=== PATIENT | female | born 1980 ===

== ENCOUNTER 2020-03-19 12:42 | Outpatient (REF) | payer OTHER, SELFPAY | END 2020-03-19 12:43 | disposition home or self-care (01) | LOC: HO.HMGCLDS 12:42 | PROVIDERS: PCP Internal Medicine; Visit Provider Internal Medicine | DX: Z20.828 Contact with and (suspected) exposure to other viral communicable diseases (principal) | CPT/HCPCS: C9803; U0003 ==

== ENCOUNTER 2020-05-27 11:32 | Outpatient (REF) | payer OTHER, SELFPAY ==
[2020-05-27 14:10] LABS: Hematocrit 44.9 % (37-47); Hemoglobin 14.2 g/dl (12.0-16.0); Mean Corpuscular HGB Conc 31.6 g/dl (31.0-35.0); Mean Corpuscular Hemoglobin 28.3 pg (27.0-33.0); Mean Corpuscular Volume 89.4 fL (80-98); Mean Platelet Volume 11.5 fL (9.4-12.3); Platelet Count 327 X10*3/uL (160-400); Red Blood Count 5.02 X10*6/uL (4.20-5.50); Red Cell Distribution Width 13.5 % (11.0-16.0); White Blood Count 9.5 X10*3/uL (4.8-10.8)
[2020-05-27 14:48] LABS: Alanine Aminotransferase 18 U/L (0-31); Albumin Level 4.2 g/dL (3.5-5.0); Alkaline Phosphatase 90 U/L (39-117); Anion Gap 14 (12-20); Aspartate Amino Transferase 22 U/L (5-31); Bilirubin Total 0.5 mg/dL (0.0-1.0); Blood Urea Nitrogen 8 mg/dL (9-16); Calcium 9.1 mg/dL (8.4-10.2); Carbon Dioxide 25 mmol/L (22-29); Chloride 106 mmol/L (96-108); Cholesterol 184 mg/dL; Estimated Glomerular Filt Rate > 60; Glucose Fasting 94 mg/dL (60-99); HDL Cholesterol 55 mg/dL; LDL Cholesterol Calculated 107 mg/dl; Potassium 4.3 mmol/l (3.3-5.1); Sodium 141 mmol/L (135-145); Total Protein 6.8 g/dL (6.5-8.0); Triglycerides 114 mg/dL
[2020-05-28 07:33] LABS: HIV AB/AG Nonreactive (Nonreactive); HIV Num 1 0.12 S/CO (0.00-0.99)
[2020-05-28 08:07] LABS: Syphilis Screen Nonreactive (Nonreactive)
[2020-05-28 18:57] LABS: C. trachomatis RNA TMA NOT DETECTED (NOT DETECTED); N. gonorrhoeae RNA TMA NOT DETECTED (NOT DETECTED)
== END 2020-05-27 11:33 | disposition home or self-care (01) ==
LOC: HO.HMGCLDS 11:32
PROVIDERS: PCP Internal Medicine; Visit Provider Internal Medicine
DX: Z00.00 Encounter for general adult medical examination without abnormal findings (principal)
CPT/HCPCS: 36415; 80053; 80061; 85027; 86780; 87389; 87491; 87591

== ENCOUNTER 2021-06-05 13:42 | Outpatient (REF) | payer OTHER, SELFPAY ==
[2021-06-05 16:22] LABS: Hematocrit 46.4 % (37.0-47.0); Hemoglobin 14.8 g/dl (12.0-16.0); Mean Corpuscular HGB Conc 31.9 g/dl (31.0-35.0); Mean Corpuscular Hemoglobin 28.4 pg (27.0-33.0); Mean Corpuscular Volume 89.1 fL (80.0-98.0); Platelet Count 410 X10*3/uL (160-400); Red Blood Count 5.21 X10*6/uL (4.20-5.50); Red Cell Distribution Width 13.9 % (11.0-16.0); White Blood Count 14.8 X10*3/uL (4.8-10.8)
[2021-06-05 16:48] LABS: Alanine Aminotransferase 31 U/L (0-31); Albumin Level 4.7 g/dL (3.5-5.0); Alkaline Phosphatase 107 U/L (39-117); Anion Gap 14 (12-20); Aspartate Amino Transferase 24 U/L (5-31); Bilirubin Total 0.5 mg/dL (0.0-1.0); Blood Urea Nitrogen 11 mg/dL (9-16); Calcium 10.8 mg/dL (8.4-10.2); Carbon Dioxide 25 mmol/L (22-29); Chloride 104 mmol/L (96-108); Cholesterol 195 mg/dL; Estimated Glomerular Filt Rate > 60; Glucose Random 96 mg/dL (60-115); HDL Cholesterol 53 mg/dL; LDL Cholesterol Calculated 113 mg/dl; Potassium 4.8 mmol/L (3.3-5.1); Sodium 138 mmol/L (135-145); Total Protein 7.8 g/dL (6.5-8.0); Triglycerides 147 mg/dL
[2021-06-05 17:03] LABS: Syphilis Screen Nonreactive (Nonreactive)
[2021-06-05 17:06] LABS: TSH reflex Free T4 0.75 uIU/mL (0.32-4.0)
[2021-06-06 03:01] LABS: CT PCR NOT DETECTED (Not Detect.); NG PCR NOT DETECTED (Not Detect.)
[2021-06-08 08:08] LABS: HIV AB/AG Nonreactive (Nonreactive); HIV Num 1 0.06 S/CO (0.00-0.99)
== END 2021-06-05 13:43 | disposition home or self-care (01) ==
LOC: HO.HMGCLDS 13:42
PROVIDERS: Visit Provider Internal Medicine
DX: Z00.00 Encounter for general adult medical examination without abnormal findings (principal); Z11.3 Encounter for screening for infections with a predominantly sexual mode of transmission; Z11.8 Encounter for screening for other infectious and parasitic diseases; Z11.4 Encounter for screening for human immunodeficiency virus [HIV]; Z13.220 Encounter for screening for lipoid disorders; Z13.29 Encounter for screening for other suspected endocrine disorder
CPT/HCPCS: 36415; 80053; 80061; 84443; 85027; 86780; 87389; 87491; 87591

== ENCOUNTER 2021-06-12 15:15 | Outpatient (REF) | payer OTHER, SELFPAY ==
[2021-06-12 16:27] LABS: Baso%MD 0.8 %; Eos%MD 1.8 %; Hematocrit 42.3 % (37.0-47.0); Hemoglobin 13.7 g/dl (12.0-16.0); IG%MD 0.3 %; Lymph%MD 28.9 %; Mean Corpuscular HGB Conc 32.4 g/dl (31.0-35.0); Mean Corpuscular Hemoglobin 28.8 pg (27.0-33.0); Mean Corpuscular Volume 89.1 fL (80.0-98.0); Mean Platelet Volume 11.3 fL (9.4-12.3); Mono%MD 9.5 %; Neut%MD 58.7 %; Platelet Count 387 X10*3/uL (160-400); Red Blood Count 4.75 X10*6/uL (4.20-5.50); Red Cell Distribution Width 13.8 % (11.0-16.0)
[2021-06-12 16:28] LABS: Appearance Urine HAZY; Color Urine YELLOW; Glucose Urine UA NEG (NEG); Leukocyte Esterase Urine 1+ (NEG); Nitrite Urine NEG (NEG); PH 6.5 (5.0-8.0); Specific Gravity - Urine 1.025 (1.005-1.025); Urine Blood NEG (NEG); Urine Ketones NEG (NEG); Urine Protein NEG (NEG-TRACE)
[2021-06-12 16:36] LABS: Bacteria Urine 4+ /LPF; RBC Urine 0 /HPF (0); Squamous Epithelial Cell Urine 4+ /LPF; WBC Urine 0-2 /HPF (0-4)
[2021-06-12 20:30] LABS: Band Neutrophils Percent 0 % (3-5); Eosinophils Absolute Manual 0.5 X10*3/uL (0.0-0.4); Eosinophils Percent Manual 4 % (0-4); Lymphocytes Absolute Manual 3.6 X10*3/uL (1.2-4.9); Lymphocytes Percent Manual 28 % (20-40); Monocytes Absolute Manual 0.9 X10*3/uL (0.1-1.2); Monocytes Percent Manual 7 % (2-11); Neutrophils Absolute Manual 7.9 X10*3/uL (2.0-8.3); Neutrophils Percent Manual 61 % (45-73)
[2021-06-12 20:31] LABS: RBC Morphology NORMAL
[2021-06-12 20:32] LABS: Platelet Estimate NORMAL (NORMAL); Platelet Morphology Comment NORMAL
[2021-06-15 10:07] LABS: Calcium, Ionized 4.9 mg/dL (4.8-5.6)
== END 2021-06-12 15:16 | disposition home or self-care (01) ==
LOC: HO.HMGCLDS 15:15
PROVIDERS: PCP Internal Medicine; Visit Provider Internal Medicine
DX: E83.52 Hypercalcemia (principal)
CPT/HCPCS: 36415; 81001; 82330; 85007; 85027

== ENCOUNTER 2021-12-02 07:33 | Outpatient (REF) | payer OTHER, SELFPAY ==
[2021-12-02 11:28] LABS: MANUAL DIFF FLAG NO
[2021-12-02 11:33] LABS: Basophils Absolute Auto 0.1 X10*3/uL (0.0-0.2); Eosinophils Absolute Auto 0.3 X10*3/uL (0.0-0.4); Eosinophils Percent Auto 2.7 % (0-4); Hematocrit 42.1 % (37.0-47.0); Hemoglobin 13.6 g/dl (12.0-16.0); Imm Gran Abs Auto 0.03 X10*3/uL (0.00-0.03); Imm Gran Pct Auto 0.3 % (0.0-0.4); Lymphocytes Absolute Auto 2.8 X10*3/uL (1.2-4.9); Lymphocytes Percent Auto 30.7 % (20-40); Mean Corpuscular HGB Conc 32.3 g/dl (31.0-35.0); Mean Corpuscular Hemoglobin 28.8 pg (27.0-33.0); Mean Corpuscular Volume 89.2 fL (80.0-98.0); Mean Platelet Volume 11.1 fL (9.4-12.3); Monocytes Absolute Auto 0.9 X10*3/uL (0.1-1.2); Monocytes Percent Auto 9.3 % (2-11); Neutrophils Absolute Auto 5.2 x10*3/uL (2.0-8.3); Platelet Count 354 X10*3/uL (160-400); Red Blood Count 4.72 X10*6/uL (4.20-5.50); Red Cell Distribution Width 14.3 % (11.0-16.0); White Blood Count 9.2 X10*3/uL (4.8-10.8)
[2021-12-02 11:56] LABS: Alanine Aminotransferase 15 U/L (0-31); Albumin Level 4.1 g/dL (3.5-5.0); Alkaline Phosphatase 89 U/L (39-117); Anion Gap 10 (12-20); Aspartate Amino Transferase 19 U/L (5-31); Bilirubin Total 0.3 mg/dL (0.0-1.0); Blood Urea Nitrogen 11 mg/dL (9-16); Calcium 9.3 mg/dL (8.4-10.2); Carbon Dioxide 26 mmol/L (22-29); Chloride 108 mmol/L (96-108); Cholesterol 185 mg/dL; Estimated Glomerular Filt Rate > 60; Glucose Fasting 105 mg/dL (60-99); HDL Cholesterol 54 mg/dL; Iron 34 mcg/dL (30-160); LDL Cholesterol Calculated 118 mg/dl; Percent Iron Saturation 9 % (15-50); Potassium 4.9 mmol/L (3.3-5.1); Sodium 139 mmol/L (135-145); Total Iron Binding Capacity 388 mcg/dL (228-428); Total Protein 6.6 g/dL (6.5-8.0); Triglycerides 68 mg/dL; Unsaturated Iron Binding 354 ug/dL
[2021-12-02 12:20] LABS: TSH reflex Free T4 1.21 uIU/mL (0.32-4.0); Vitamin D 25-OH Total 20.4 ng/mL (>30)
== END 2021-12-02 07:34 | disposition home or self-care (01) ==
LOC: HO.HMGCLDS 07:33
PROVIDERS: Visit Provider Internal Medicine
DX: Z00.00 Encounter for general adult medical examination without abnormal findings (principal)
CPT/HCPCS: 36415; 80053; 80061; 82306; 83540; 84443; 85025

== ENCOUNTER 2022-01-28 08:19 | Outpatient (REF) | payer OTHER, SELFPAY ==
[2022-02-01 19:47] LABS: HPV mRNA E6/E7 rflx Not Detected (Not Detected)
== END 2022-01-28 08:20 | disposition home or self-care (01) ==
LOC: HO.LNP 08:19
PROVIDERS: Visit Provider Obstetrics & Gynecology
DX: Z01.411 Encounter for gynecological examination (general) (routine) with abnormal findings (principal); Z11.51 Encounter for screening for human papillomavirus (HPV); N92.0 Excessive and frequent menstruation with regular cycle
CPT/HCPCS: 84443; 84702; 85027; 87491; 87591; 87624; 88142; 99202

== ENCOUNTER 2022-01-28 08:25 | Outpatient (REF) | payer OTHER, SELFPAY ==
[2022-01-28 08:59] LABS: Hematocrit 44.1 % (37.0-47.0); Hemoglobin 14.4 g/dl (12.0-16.0); Mean Corpuscular HGB Conc 32.7 g/dl (31.0-35.0); Mean Corpuscular Hemoglobin 28.9 pg (27.0-33.0); Mean Corpuscular Volume 88.6 fL (80.0-98.0); Mean Platelet Volume 10.5 fL (9.4-12.3); Platelet Count 371 X10*3/uL (160-400); Red Blood Count 4.98 X10*6/uL (4.20-5.50); Red Cell Distribution Width 13.5 % (11.0-16.0); White Blood Count 11.4 X10*3/uL (4.8-10.8)
[2022-01-28 09:45] LABS: HCG Quantitative < 2 mIU/mL; TSH reflex Free T4 0.55 uIU/mL (0.32-4.0)
[2022-01-28 12:25] LABS: CT PCR NOT DETECTED (Not Detect.); NG PCR NOT DETECTED (Not Detect.)
== END 2022-01-28 08:26 | disposition home or self-care (01) ==
LOC: HO.LAB 08:25
PROVIDERS: PCP Internal Medicine; Visit Provider Obstetrics & Gynecology
DX: Z13.89 Encounter for screening for other disorder (principal)
CPT/HCPCS: 84443; 84702; 85027; 87491; 87591

== ENCOUNTER 2022-03-02 09:22 | Outpatient (REF) | payer OTHER, SELFPAY ==
--- NOTE | ~2022-03-02 | MM_ITS ---
EXAMINATION: MM SCREENING DIGITAL BREAST TOMOSYNTHESIS, BILATERAL CLINICAL INFORMATION: Screening. Asymptomatic. Age 41. No prior breast imaging. No known family history breast cancer. The lifetime risk of breast cancer based on the Tyrer-Cuzick Model is 7%. COMPARISON: None (current study represents initial baseline exam). TECHNIQUE: Digital breast tomosynthesis is performed in both the craniocaudal and mediolateral oblique views along with computer-aided detection (CAD). Synthesized 2D images are generated from the tomosynthesis. FINDINGS: There are scattered areas of fibroglandular density (ACR BI-RADS breast composition Category b). The breasts show no significant mass and no abnormal calcifications. The axilla and skin contours are unremarkable. Right CC view has asymmetric density central outer quadrant 9.5 cm from nipple, likely summation artifact. As this represents initial baseline exam, patient will be recalled for additional imaging to fully characterize baseline appearance. MM/MM tomosynthesis screening BI IMPRESSION: Right: -Asymmetric density posterior outer breast on CC view, likely summation artifact. Left: -No mammographic evidence of malignancy. ASSESSMENT: BI-RADS 0: Incomplete - Need Additional Imaging Evaluation RECOMMENDATION: 1. Additional views of the right breast (rolled CC x2, ML). 2. Targeted ultrasound if warranted after review of the additional views. 3. Radiology department staff will contact the patient for additional imaging. This patient's information was entered into a reminder system with a target due date for their next mammogram.
== END 2022-03-02 09:23 | disposition home or self-care (01) ==
LOC: HO.MAMMO 09:22
PROVIDERS: PCP Internal Medicine; Visit Provider Obstetrics & Gynecology
DX: Z12.31 Encounter for screening mammogram for malignant neoplasm of breast (principal)
CPT/HCPCS: 77063; 77067

== ENCOUNTER 2022-03-05 08:17 | Outpatient (REF) | payer OTHER, SELFPAY ==
--- NOTE | ~2022-03-05 | MM_ITS ---
EXAMINATION: MM DIAGNOSTIC DIGITAL BREAST TOMOSYNTHESIS, RIGHT US DIAGNOSTIC ULTRASOUND BREAST, RIGHT CLINICAL INFORMATION: Recall from baseline exam for asymmetric density central outer right breast on CC view, suspected summation artifact. Age 41. TC score 7%. COMPARISON: Mammography: 03/02/2022 (baseline) TECHNIQUE: Digital breast tomosynthesis is performed. 2D images are generated from the tomosynthesis. The following views are obtained: Rolled CC x2, ML. Ultrasound right breast is targeted to the outer breast 8:00 through 10:00 position. Grayscale imaging and color Doppler are performed without and with harmonics. FINDINGS: There are scattered areas of fibroglandular density (ACR BI-RADS breast composition Category b). Additional views show scattered islands of fibroglandular tissue which appear changing with change in position. No asymmetric density on MLO view. Ultrasound demonstrates no cystic or solid mass or architectural abnormality or focal duct ectasia. Results are discussed with the patient at time of visit. As a precaution given the baseline status, short interval 6-month follow-up right mammography will be requested to exclude remote possibility of an occult developing density. MM/MM tomosynthesis added views R IMPRESSION: -Additional views show no three-dimensional mass or architectural abnormality. -Unremarkable targeted right breast ultrasound ASSESSMENT: BI-RADS 3: Probably Benign RECOMMENDATION: Diagnostic right mammography in 6 months. This patient's information was entered into a reminder system with a target due date for their next mammogram.
== END 2022-03-05 08:18 | disposition home or self-care (01) ==
LOC: HO.MAMMO 08:17
PROVIDERS: Visit Provider Obstetrics & Gynecology
DX: R92.2 Inconclusive mammogram (principal)
CPT/HCPCS: 76642; 77061; 77065

== ENCOUNTER 2022-03-29 10:26 | Outpatient (REF) | payer OTHER, SELFPAY | END 2022-03-29 10:27 | disposition home or self-care (01) | LOC: HO.LNP 10:26 | PROVIDERS: PCP Internal Medicine; Visit Provider Obstetrics & Gynecology | DX: N93.9 Abnormal uterine and vaginal bleeding, unspecified (principal); Z32.02 Encounter for pregnancy test, result negative | CPT/HCPCS: 58100; 81025; 88305 ==

== ENCOUNTER 2022-04-14 11:11 | Outpatient (REF) | payer OTHER, SELFPAY ==
--- NOTE | ~2022-04-14 | US_ITS ---
EXAMINATION: US PELVIS CLINICAL INFORMATION: Abnormal uterine and vaginal bleeding. COMPARISON: None TECHNIQUE: Ultrasound of the pelvis was performed using both transabdominal and transvaginal transducers along with Doppler. Transvaginal imaging was performed due to inadequate visualization transabdominally. FINDINGS: UTERUS: The uterus is anteverted, retroflexed and measures 9.1 x 4.6 x 5.4 cm. The double wall endometrial thickness is 0.6 cm. The uterus is smooth in contour and has normal myometrial echogenicity. No visible fibroid. There are small nabothian cysts in the cervix. The cervix is closed and measures 1.9 cm. ADNEXA: Both ovaries are visualized. There is normal color flow to the adnexa. There is no ovarian torsion. There is no pelvic ascites or fluid collection. Right ovary measures 3.2 x 2.3 x 2.1 cm, volume 8.1 mL. There is an anechoic cyst with septation measuring 2.4 x 1.3 x 3.2 cm. Left ovary measures 4.7 x 3.4 x 3.8 cm, volume 31.8 mL. There is an anechoic cyst measuring 2.3 x 1.9 x 2.2 cm. Adjacent to this cyst, is a solid, hyperechoic area seen in the left ovary without increased vascularity measuring 3.67 x 2.47 x 2.84 cm. Question a dermoid cyst. There is small daughter cyst adjacent to the larger ovarian cyst. US/US pelvic and transvaginal IMPRESSION: 1. Unremarkable uterus. 2. Small nabothian cysts in the cervix. 3. Bilateral ovarian cysts. 4. Solid, hyperechoic area in the left ovary without increased vascularity. Differential diagnosis includes a dermoid cyst. Recommend follow up after 2 or 3 cycles. 5. There is no free fluid in the cul-de-sac.
== END 2022-04-14 11:12 | disposition home or self-care (01) ==
LOC: HO.US 11:11
PROVIDERS: Visit Provider Obstetrics & Gynecology
DX: N93.9 Abnormal uterine and vaginal bleeding, unspecified (principal)
CPT/HCPCS: 76830; 76856

== ENCOUNTER → 2022-06-08 14:12 | Outpatient (BNVA) | payer OTHER, SELFPAY | PROVIDERS: PCP Internal Medicine; Visit Provider Obstetrics & Gynecology | DX: N83.291 Other ovarian cyst, right side (principal); N83.292 Other ovarian cyst, left side; N93.9 Abnormal uterine and vaginal bleeding, unspecified | CPT/HCPCS: 99212 ==

== ENCOUNTER 2022-07-02 14:15 | Outpatient (REF) | payer OTHER, SELFPAY ==
--- NOTE | ~2022-07-02 | US_ITS ---
EXAMINATION: US PELVIS CLINICAL INFORMATION: Follow up ovarian cyst. LMP 06/27/2022. COMPARISON: 04/14/2022. TECHNIQUE: Ultrasound of the pelvis is performed using both transabdominal and transvaginal transducers along with Doppler. Transvaginal imaging is performed due to inadequate visualization transabdominally. FINDINGS: Uterus: The uterus is anteverted and measures 7.7 x 3.6 x 4.2 cm. The double wall endometrial thickness is 4 mm. The uterus is smooth in contour and has normal myometrial echogenicity. No visible fibroid. Adnexa: The right ovary measures 2.4 x 1.7 x 2.2 cm, volume of 4.5 mL with redemonstration of small hyperechoic foci of uncertain significance, not significantly changed. There is preserved color flow to the right ovary at the moment of this examination. The left ovary is enlarged secondary to the presence of a mass. The left ovary measures 4.4 x 2.8 x 4 cm (25.5 mL) with overall preserved color flow, though suboptimally assessed due to the presence of the lesion. There is redemonstration of a diffusely hyperechoic mass in the left ovary with posterior sound attenuation measuring 3.4 x 2.7 x 3.5 cm, previously 3.7 x 2.5 x 2.8 cm on the ultrasound from 04/14/2022. There are some hyperechoic foci projecting over the cervix, likely representing calcifications. No free fluid. US/US pelvic and transvaginal IMPRESSION: Increased size of a hyperechoic mass in the left ovary which favors to represent a dermoid. Given size and interval growth, surgical consultation is recommended to establish management.
== END 2022-07-02 14:16 | disposition home or self-care (01) ==
LOC: HO.HMGCX 14:15
PROVIDERS: PCP Internal Medicine; Visit Provider Obstetrics & Gynecology
DX: N83.299 Other ovarian cyst, unspecified side (principal)
CPT/HCPCS: 76830; 76856

== ENCOUNTER 2022-07-13 14:13 | Outpatient (REF) | payer OTHER, SELFPAY ==
[2022-07-15 09:03] LABS: CA-125 5 U/mL (<35)
== END 2022-07-13 14:14 | disposition home or self-care (01) ==
LOC: HO.LAB 14:13
PROVIDERS: PCP Internal Medicine; Visit Provider Obstetrics & Gynecology
DX: N83.292 Other ovarian cyst, left side (principal)
CPT/HCPCS: 36415; 86304; 99212

== ENCOUNTER 2022-09-16 14:31 | Outpatient (REF) | payer OTHER, SELFPAY ==
--- NOTE | ~2022-09-16 | MM_ITS ---
EXAMINATION: MM DIAGNOSTIC DIGITAL BREAST TOMOSYNTHESIS, RIGHT CLINICAL INFORMATION: Short interval six-month follow-up for asymmetric density central outer right breast on CC view initially noted at baseline mammography. No known family history breast cancer. The lifetime risk of breast cancer based on the Tyrer-Cuzick Model is 7%. COMPARISON: Mammography: 03/05/2022, 03/02/2022 (baseline, BI-RADS 0), right breast ultrasound 03/05/2022. TECHNIQUE: Digital breast tomosynthesis is performed in both the craniocaudal and mediolateral oblique views along with computer-aided detection (CAD). Synthesized 2D images are generated from the tomosynthesis. Additional spot right CC view is obtained. FINDINGS: There are scattered areas of fibroglandular density (ACR BI-RADS breast composition Category b). Parenchymal pattern is similar to baseline exam. The parenchymal asymmetry posterior central outer breast on CC view appears to largely resolve on the spot view. There is no focal asymmetric density on the MLO projection. No abnormal calcifications. Skin contours are smooth. Right breast will be reassessed again at time of annual mammography, due in 6 months. Results are provided to the patient at time of visit by the technologist. MM/MM tomosynthesis diagnostic RT IMPRESSION: No significant changes from baseline exam. No developing density or interval architectural abnormality. ASSESSMENT: BI-RADS 3: Probably Benign RECOMMENDATION: Diagnostic mammography at time of annual bilateral mammography, due in 6 months. This patient's information was entered into a reminder system with a target due date for their next mammogram.
== END 2022-09-16 14:32 | disposition home or self-care (01) ==
LOC: HO.MAMMO 14:31
PROVIDERS: PCP Internal Medicine; Visit Provider Internal Medicine
DX: R92.2 Inconclusive mammogram (principal)
CPT/HCPCS: 77061; 77065

== ENCOUNTER 2022-12-06 14:23 | Outpatient (REF) | payer OTHER, SELFPAY ==
[2022-12-06 14:34] LABS: Hematocrit 40.7 % (37.0-47.0); Hemoglobin 13.4 g/dl (12.0-16.0); Mean Corpuscular HGB Conc 32.9 g/dl (31.0-35.0); Mean Corpuscular Hemoglobin 29.6 pg (27.0-33.0); Mean Platelet Volume 10.8 fL (9.4-12.3); Platelet Count 335 X10*3/uL (160-400); Red Blood Count 4.52 X10*6/uL (4.20-5.50); Red Cell Distribution Width 13.9 % (11.0-16.0); White Blood Count 10.7 X10*3/uL (4.8-10.8)
[2022-12-06 17:41] LABS: TSH reflex Free T4 1.59 uIU/mL (0.32-4.0)
[2022-12-06 18:19] LABS: CT PCR NOT DETECTED (Not Detect.); NG PCR NOT DETECTED (Not Detect.)
== END 2022-12-06 14:24 | disposition home or self-care (01) ==
LOC: HO.LAB 14:23
PROVIDERS: PCP Internal Medicine; Visit Provider Obstetrics & Gynecology
DX: N83.299 Other ovarian cyst, unspecified side (principal); N93.9 Abnormal uterine and vaginal bleeding, unspecified; Z20.2 Contact with and (suspected) exposure to infections with a predominantly sexual mode of transmission
CPT/HCPCS: 0353U; 36415; 81025; 84443; 85027; 99212

== ENCOUNTER 2022-12-06 14:34 | Outpatient (AMB) | payer OTHER, SELFPAY ==
[2022-12-06 14:41] VITALS: BP 110/70; BMI 30.2
--- NOTE | 2022-12-06 14:41 | MHC.OFFVIS ---
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: No Information Interpreted: non-clinical & clinical Straightening Machine Feeder: Straightening Machine Feeder Present (Aziza ARITA) Accompanied by: Self / Same As Patient Allergies cephalexin Allergy (Severe, Verified 12/06/22 14:42) nausea vomiting sulfamethoxazole [From Bactrim] Allergy (Verified 12/06/22 14:42) Diarrhea trimethoprim [From Bactrim] Allergy (Verified 12/06/22 14:42) Diarrhea trazodone Adverse Reaction (Unknown, Verified 12/06/22 14:42) palpitations tramadol Adverse Reaction (Verified 12/06/22 14:42) Itching skin HPI HPI Comments History of Present Illness Details Presenting complaining of heavy vaginal bleeding over the last few days. Last co testing was in 02/04 was negative. Last ultrasound was in 07/08, the patient underwent laparoscopic oophorectomy [facility] with benign pathology according to her, the records is not available [facility] Medical History Annual physical exam ASCUS with positive high risk HPV cervical Hidradenitis suppurativa Hypercalcemia Lower back pain Surgical History S/P cholecystectomy Family History Mother Rheumatoid arthritis Social History Household Members: Children Housing: House Alcohol intake: current Alcohol intake frequency: holidays/special occasions only Patient Tobacco Use Status: Current everyday Tobacco user Cigarettes Per Day: 5 Years Smoked: 10 e-Cigarette/Vaping Use: Never Used Current occupational status: employed Cognitive needs: No Hearing needs: No Vision needs: Yes Female Reproductive History Menstrual Age of Menarche: 13 Review of Systems Const All systems reviewed & are unremarkable except as noted in HPI and below Physical Exam Vital Signs: Last Vital Signs BP 110/70 12/06/22 14:41 BMI result Body Mass Index 30.2 General: Yes no CVA tenderness External Female Exam: normal external appearance and normal appearance of the urethra Speculum Exam - Vagina: normal appearance of the vagina, normal palpation, no lesions and no masses Speculum Exam - Cervix: normal appearance of the cervix, normal palpation, no lesions, no masses and nontender Bimanual exam- vagina & uterus: normal bimanual exam, normal palpation, uterine size normal, normal palpation, uterine shape normal, No Cervical tenderness present, non-tender and other (No active vaginal bleeding) Bimanual Exam- Adnexa, other: normal adnexae Back/Spine/Pelvis Back: no CVA tenderness Assessment & Plan Assessment & Plan (1) Abnormal uterine bleeding (AUB): Code(s): N93.9 - Abnormal uterine and vaginal bleeding, unspecified Plan: CBC done today within normal, UPT done in the office was negative. GC and chlamydia taken. TSH ordered. Discussed with the patient the different causes of abnormal bleeding including thyroid disorders, uterine and ovarian pathology, endometrial hyperplasia, carcinoma and other potential causes. Discussed with the patient the work up including CBC (to r/o anemia), TSH, endometrial biopsy to r/o endometrial pathology. All questions answered and the patient verbalized understanding. Instructed the patient to schedule an appointment for an endometrial biopsy in 2 weeks. Coding Level of Care Code Est Pt Level 3 (41440) Diagnoses Abnormal uterine bleeding (AUB) N93.9
== END 2022-12-06 14:57 | disposition home or self-care (01) ==
LOC: HO.HWS 14:34
PROVIDERS: PCP Internal Medicine; Visit Provider Obstetrics & Gynecology
DX: N93.9 Abnormal uterine and vaginal bleeding, unspecified (principal); Z32.02 Encounter for pregnancy test, result negative
CPT/HCPCS: 99213

== ENCOUNTER 2022-12-06 14:53 | Outpatient (REF) | payer OTHER, SELFPAY | END 2022-12-06 14:54 | disposition home or self-care (01) | LOC: HO.LNP 14:53 | PROVIDERS: Visit Provider Obstetrics & Gynecology | DX: Z13.89 Encounter for screening for other disorder (principal) ==

== ENCOUNTER 2023-11-03 08:23 | Outpatient (REF) | payer OTHER, SELFPAY ==
[2023-11-08 14:19] LABS: HPV mRNA E6/E7 Not Detected (Not Detected)
== END 2023-11-03 08:24 | disposition home or self-care (01) ==
LOC: HO.LNP 08:23
PROVIDERS: PCP Internal Medicine; Visit Provider Obstetrics & Gynecology
DX: N83.299 Other ovarian cyst, unspecified side (principal); N93.9 Abnormal uterine and vaginal bleeding, unspecified; R87.610 Atypical squamous cells of undetermined significance on cytologic smear of cervix (ASC-US); R87.810 Cervical high risk human papillomavirus (HPV) DNA test positive
CPT/HCPCS: 58100; 81025; 87624; 88142; 88175; 88305

== ENCOUNTER 2023-11-03 08:23 | Outpatient (AMB) | payer OTHER, SELFPAY ==
--- NOTE | 2023-11-03 08:31 | A.OFFVIS_ITS ---
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 Required: No Information Interpreted: non-clinical & clinical Accompanied by: Self / Same As Patient Allergies cephalexin Allergy (Severe, Verified 11/03/23 08:34) nausea vomiting sulfamethoxazole [From Bactrim] Allergy (Verified 11/03/23 08:34) Diarrhea trimethoprim [From Bactrim] Allergy (Verified 11/03/23 08:34) Diarrhea trazodone Adverse Reaction (Unknown, Verified 11/03/23 08:34) palpitations tramadol Adverse Reaction (Verified 11/03/23 08:34) Itching skin Is last menstrual period known: Yes Last menstrual period: 10/09/23 HPI Comments Details: Presenting for follow-up regarding abnormal uterine bleeding associated with passage of blood clots and pelvic cramping. Last co testing was in 02/04 was negative this was preceded by ascus/HPV positive in 2019. Pelvic ultrasound done in 07/08 showed the following: Uterus: The uterus is anteverted and measures 7.7 x 3.6 x 4.2 cm. The double wall endometrial thickness is 4 mm. The uterus is smooth in contour and has normal myometrial echogenicity. No visible fibroid. Adnexa: The right ovary measures 2.4 x 1.7 x 2.2 cm, volume of 4.5 mL with redemonstration of small hyperechoic foci of uncertain significance, not significantly changed. There is preserved color flow to the right ovary at the moment of this examination. The left ovary is enlarged secondary to the presence of a mass. The left ovary measures 4.4 x 2.8 x 4 cm (25.5 mL) with overall preserved color flow, though suboptimally assessed due to the presence of the lesion. There is redemonstration of a diffusely hyperechoic mass in the left ovary with posterior sound attenuation measuring 3.4 x 2.7 x 3.5 cm, previously 3.7 x 2.5 x 2.8 cm on the ultrasound from 04/14/2022. There are some hyperechoic foci projecting over the cervix, likely representing calcifications. No free fluid. Last mammogram in 10/05 was BI-RADS 3, the recommendation was to repeat in 6 months, the patient scheduled for another mammogram tomorrow The patient was seen in 12/05 for AUB, EMB was recommended within 2 weeks since then the patient did not follow-up for EMB did not have a follow-up ultrasound for increased left ovarian mass and did not have a six-month follow-up mammogram. [facility] Medical History ASCUS with positive high risk HPV cervical Lower back pain Hypercalcemia Hidradenitis suppurativa Annual physical exam Surgical History S/P cholecystectomy Family History Mother Rheumatoid arthritis Social History Household Members: Children Housing: House Alcohol intake: current Alcohol intake frequency: holidays/special occasions only Patient Tobacco Use Status: Current everyday Tobacco user Cigarettes Per Day: 5 Years Smoked: 10 e-Cigarette/Vaping Use: Never Used Current occupational status: employed Cognitive needs: No Hearing needs: No Vision needs: Yes Female Reproductive History Menstrual Age of Menarche: 13 Date of last menstrual period: 10/09/23 Review of Systems Const All systems reviewed & are unremarkable except as noted in HPI and below Card Reports as per HPI Resp Reports as per HPI GI Reports as per HPI and Reports no additional complaints Reports as per HPI Physical Exam Vital Signs: Last Vital Signs BP 118/76 11/03/23 08:33 BMI result Body Mass Index 31.1 Const General: cooperative, healthy appearing and comfortable Chest Chest palpation & inspection: normal inspection of the chest and normal palpation of entire chest wall Breast/axilla inspection: normal inspection of the breasts and normal inspection of the axillae Breast/axilla palpation: normal palpation of the breasts, normal palpation of the axillae and no axillary lymphadenopathy Resp Effort & Inspection: normal respiratory effort Auscultation: clear to auscultation bilaterally Percussion: percussion normal Cardio Palpation: normal PMI Rate: regular rate Rhythm: regular rhythm Heart sounds: no murmurs and no rubs Peripheral pulses: Peripheral pulses 2+ throughout GI Inspection: Yes normal to inspection Palpation (GI): Soft to palpation, nontender, no guarding, not rigid and No hepatosplenomegaly present Percussion: Yes normal to percussion Auscultation: normal bowel sounds Rectal Exam - Female: deferred General: Yes bladder normal to palpation External Female Exam: No lesion Speculum Exam - Vagina: normal appearance of the vagina, normal palpation, normal vaginal discharge and not erythematous Speculum Exam - Cervix: normal appearance of the cervix and normal palpation Bimanual exam- vagina & uterus: normal bimanual exam, normal palpation, uterine size normal, bladder normal to palpation, consistency normal and normal palpation Bimanual Exam- Adnexa, other: normal adnexae, no masses and no tenderness Office Procedures Endometrial Biopsy Details: The patient was counseled regarding the indication and benefits of endometrial sampling to rule out endometrial pathology including not limited to endometrial hyperplasia or endometrial cancer and others; The alternatives (Either do nothing vs. hysteroscopy D&C) & the risks were discussed with the patient including but not limited: pain, uterine perforation, bleeding, infection, possible injury to bladder, bowel, ureter, possible need for blood transfusion with all its possible risks. The patient verbalized understanding all questions answered and signed consent. Urine test done in the office was negative The patient was placed into the dorsal lithotomy position; a speculum was inserted in the vagina. Using aseptic technique for the procedure, the cervix was cleansed with Betadine. The anterior lip of the cervix was grasped with a single tooth tenaculum. The uterus was sounded to 7 cm with a 4 mm Pipelle was used. Tissues samples were obtained and placed in formalin, in a patient labeled container and sent to the pathology department. At the end of the procedure, there was minimal bleeding noted The patient tolerated the procedure well and was discharged in good condition with the following instructions: Nothing in the vagina until the bleeding stops. No sex until the bleeding stops, to call if any of the following occurs: fever (>100.4), flu-like symptoms, abdominal pain, heavy bleeding, four smelling vaginal discharge. The patient was instructed to schedule a Follow up appointment in 2 weeks to discuss pathology results of the biopsy and treatment options. This note was generated with a voice recognition program. Some errors may have been overlooked during the review of this note. Sometimes these errors may affect the content or meaning of a given sentence. [id number] Biopsy Results AMB Test Urine AMB Test Urine Negative Last Edit by Silvia Lovell CMA on 11/03/23 09:07 Results Reviewed Results Reviewed: Laboratory Last Values Tst Clinic Negative 11/03/23 09:06 Assessment & Plan Assessment & Plan (1) Complex ovarian cyst: Comment: Persistent, possible dermoid Code(s): N83.299 - Other ovarian cyst, unspecified side Category: Medical Plan: Repeat ultrasound ordered, instructions given the patient to schedule ultrasound and a follow-up appointment within 2 weeks. (2) ASCUS with positive high risk HPV cervical: Comment: 08/02, no colpo biopsy done 02/04 co testing negative Code(s): R87.610 - Atypical squamous cells of undetermined significance on cytologic smear of cervix (ASC-US); R87.810 - Cervical high risk human papillomavirus (HPV) DNA test positive Category: Medical Plan: Co testing done. (3) Abnormal uterine bleeding (AUB): Code(s): N93.9 - Abnormal uterine and vaginal bleeding, unspecified Category: Medical Plan: Mammogram scheduled for tomorrow according to the patient. Co testing done, GC and chlamydia taken CBC, TSH, prolactin, HCG, and pelvic ultrasound ordered. Discussed with the patient the different causes of abnormal bleeding including thyroid disorders, uterine and ovarian pathology, endometrial hyperplasia, carcinoma and other potential causes. Discussed with the patient the work up including CBC (to r/o anemia), TSH, prolactin, pelvic Ultrasound, endometrial biopsy to r/o endometrial pathology. All questions answered and the patient verbalized understanding. EMB done, see procedure note. Orders: Orders Complete Blood Count no Diff Today N93.9 - Abnormal uterine and vaginal bleeding, unspecified TSH reflex Free T4 Today N93.9 - Abnormal uterine and vaginal bleeding, unspecified Prolactin Today N93.9 - Abnormal uterine and vaginal bleeding, unspecified HCG Quantitative Today N93.9 - Abnormal uterine and vaginal bleeding, unspecified US pelvic and transvaginal Today N93.9 - Abnormal uterine and vaginal bleeding, unspecified AMB HCG Urine Test Today Z32.02 - Encounter for test, result negative AMB Endometrial Biopsy Today N93.9 - Abnormal uterine and vaginal bleeding, unspecified Coding Level of Care Code Est Pt Level 3 (30190) Procedure Only Diagnoses Complex ovarian cyst N83.299 ASCUS with positive high risk HPV cervical R87.610; R87.810 Abnormal uterine bleeding (AUB) N93.9 CPT Codes Endometrial Biopsy - CPT: 53725-[id number] Biopsy ([id number])
[2023-11-03 08:33] VITALS: BP 118/76; BMI 31.1
== END 2023-11-03 09:15 | disposition home or self-care (01) ==
PROVIDERS: PCP Internal Medicine; Visit Provider Obstetrics & Gynecology
DX: N83.299 Other ovarian cyst, unspecified side (principal); R87.610 Atypical squamous cells of undetermined significance on cytologic smear of cervix (ASC-US); R87.810 Cervical high risk human papillomavirus (HPV) DNA test positive; N93.9 Abnormal uterine and vaginal bleeding, unspecified; Z32.02 Encounter for pregnancy test, result negative
CPT/HCPCS: 58100; 99213

== ENCOUNTER 2023-11-03 09:21 | Outpatient (REF) | payer OTHER, SELFPAY ==
[2023-11-03 09:54] LABS: Hemoglobin 14.5 g/dl (12.0-16.0); Mean Corpuscular Hemoglobin 28.8 pg (27.0-33.0); Mean Corpuscular Volume 87.5 fL (80.0-98.0); Mean Platelet Volume 10.5 fL (9.4-12.3); Platelet Count 349 X10*3/uL (160-400); Red Blood Count 5.03 X10*6/uL (4.20-5.50); Red Cell Distribution Width 14.3 % (11.0-16.0); White Blood Count 11.6 X10*3/uL (4.8-10.8)
[2023-11-03 10:40] LABS: HCG Quantitative < 2 mIU/mL; TSH reflex Free T4 0.62 uIU/mL (0.32-4.0)
[2023-11-03 18:40] LABS: CT PCR NOT DETECTED (Not Detect.); NG PCR NOT DETECTED (Not Detect.)
[2023-11-04 10:33] LABS: Prolactin 7.3 ng/mL
== END 2023-11-03 09:22 | disposition home or self-care (01) ==
LOC: HO.LAB 09:21
PROVIDERS: PCP Internal Medicine; Visit Provider Obstetrics & Gynecology
DX: N93.9 Abnormal uterine and vaginal bleeding, unspecified (principal)
CPT/HCPCS: 0353U; 84146; 84443; 84702; 85027

== ENCOUNTER 2023-11-08 14:07 | Outpatient (AMB) | payer OTHER, SELFPAY ==
--- NOTE | 2023-11-08 14:09 | A.OFFVIS_ITS ---
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 Operator Present Allergies cephalexin Allergy (Severe, Verified 11/08/23 14:13) nausea vomiting sulfamethoxazole [From Bactrim] Allergy (Verified 11/08/23 14:13) Diarrhea trimethoprim [From Bactrim] Allergy (Verified 11/08/23 14:13) Diarrhea trazodone Adverse Reaction (Unknown, Verified 11/08/23 14:13) palpitations tramadol Adverse Reaction (Verified 11/08/23 14:13) Itching skin Is last menstrual period known: Yes Last menstrual period: 03/13/20 Post menopausal: No Patient : No Do you need a note to return to daycare/school/sports/work: Yes (for surgery on tuesday) HPI Comments Details: The patient is presenting after endometrial biopsy. The patient has no complaints, no vaginal bleeding, no feverishness chills or abdominal pain. The endometrial biopsy pathology report showed the following: Endometrium, biopsy: Benign dyssynchronous secretory endometrium with poorly developed secretory glands and late secretory stroma; no atypia or carcinoma. Comment: Some fragments may be derived from benign functional polyps PFSH Medical History ASCUS with positive high risk HPV cervical Lower back pain Hypercalcemia Hidradenitis suppurativa Annual physical exam Surgical History S/P cholecystectomy Family History Mother Rheumatoid arthritis Social History Household Members: Children Housing: House Alcohol intake: current Alcohol intake frequency: holidays/special occasions only Patient Tobacco Use Status: Current everyday Tobacco user Cigarettes Per Day: 5 Years Smoked: 10 e-Cigarette/Vaping Use: Never Used Current occupational status: employed Cognitive needs: No Hearing needs: No Vision needs: Yes Female Reproductive History Menstrual Age of Menarche: 13 Date of last menstrual period: 03/13/20 Total pregnancies: 2 Full term: 2 Review of Systems Card Reports as per HPI and Reports no additional complaints Resp Reports as per HPI and Reports no additional complaints GI Reports as per HPI and Reports no additional complaints Reports as per HPI Physical Exam Vital Signs: Last Vital Signs BP 140/78 H 11/08/23 14:10 BMI result Body Mass Index 31.1 Const General: cooperative, healthy appearing and comfortable Resp Effort & Inspection: normal respiratory effort Auscultation: clear to auscultation bilaterally Percussion: percussion normal Cardio Palpation: normal PMI Rate: regular rate Rhythm: regular rhythm Heart sounds: no murmurs and no rubs Peripheral pulses: Peripheral pulses 2+ throughout GI Inspection: Yes normal to inspection Palpation (GI): Soft to palpation, nontender, no guarding, not rigid and No hepatosplenomegaly present Percussion: Yes normal to percussion Auscultation: normal bowel sounds Rectal Exam - Female: deferred Assessment & Plan Assessment & Plan (1) Abnormal uterine bleeding (AUB): Comment: Endometrial polyp on EMB pathology Code(s): N93.9 - Abnormal uterine and vaginal bleeding, unspecified Category: Medical Plan: Discussed with the patient the finding on EMB pathology showing fragments of endometrial polyp, recommended hysteroscopy D&C possible polypectomy/myomectomy. Discussed with the patient the procedure , all benefits and risks including but not limited to inability to complete the procedure , insufficient endometrial tissue for a complete evaluation of the endometrial cavity , bleeding, infe ction, possible need for blood transfusion with all its risk ( HIV,syphilis, Hepatitis, anaphylaxis shock, others..), injury to bladder, rectum, possible need for laparoscopy/laparotomy or hysterectomy. The patient verbalized understanding and signed the consent. Instructions given the patient to stay NPO after midnight the day prior to the procedure and to take only the specific medication (s) discussed the morning of the surgical procedure and to schedule a 2 week postoperative appointment Coding Level of Care Code Est Pt Level 3 (13695) Diagnoses Abnormal uterine bleeding (AUB) N93.9
[2023-11-08 14:10] VITALS: BP 140/78; BMI 31.1
== END 2023-11-08 14:38 | disposition home or self-care (01) ==
PROVIDERS: PCP Internal Medicine; Visit Provider Obstetrics & Gynecology
DX: N93.9 Abnormal uterine and vaginal bleeding, unspecified (principal)
CPT/HCPCS: 99213

== ENCOUNTER → 2023-11-08 14:07 | Outpatient (BNVA) | payer OTHER, SELFPAY | PROVIDERS: PCP Internal Medicine; Visit Provider Obstetrics & Gynecology | DX: Z01.818 Encounter for other preprocedural examination (principal); N93.9 Abnormal uterine and vaginal bleeding, unspecified | CPT/HCPCS: 99212 ==

== ENCOUNTER 2023-11-11 09:32 | Outpatient (REF) | payer OTHER, SELFPAY ==
--- NOTE | ~2023-11-11 | MM_ITS ---
EXAMINATION: MM DIAGNOSTIC DIGITAL BREAST TOMOSYNTHESIS, BILATERAL CLINICAL INFORMATION: Patient was scheduled for six-month follow-up for right breast asymmetry CC projection outer breast on 03/05/2022, but did not return for recommended follow-up. Patient presents now for bilateral screening and follow-up of right CC view asymmetry from 03/05/2022. No significant family history. No history of procedures. COMPARISON: Mammography: 03/05/2022, 03/02/2022 (baseline exam) TECHNIQUE: Digital breast tomosynthesis is performed in both the craniocaudal and mediolateral oblique views along with computer-aided detection (CAD). Synthesized 2D images are generated from the tomosynthesis. In addition, a full-field 3-D right ML view was obtained, as well as a 3-D spot compression right CC view. FINDINGS: There are scattered areas of fibroglandular density (ACR BI-RADS breast composition Category b). The asymmetry in the outer right breast on the CC projection has no definite MLO correlate, and appears to efface on spot compression view, similar to the prior exam. This is most likely superimposition artifact of overlapping tissues. Recommend 1 additional 6 month follow-up to establish a two-year stability and hence benignity. Otherwise there are no suspicious masses, suspicious grouped calcifications, or areas of architectural distortion in either breast. The parenchymal pattern is stable from prior exams. There is no skin or axillary abnormality. MM/MM tomosynthesis diagnostic BI IMPRESSION: No findings suspicious for malignancy in either breast. 1 view asymmetry lateral right CC view is most consistent with superimposition artifact. Recommend 1 additional 6 month follow-up mammography to establish a two-year stability and benignity. Same views recommended. ASSESSMENT: BI-RADS BI-RADS 3 - Probably benign finding(s) - 6 month follow-up suggested RECOMMENDATION: 6 Month F/U Results were provided to the patient at time of visit by the technologist. This patient's information was entered into a reminder system with a target due date for their next mammogram.
== END 2023-11-11 09:33 | disposition home or self-care (01) ==
LOC: HO.MAMMO 09:32
PROVIDERS: PCP Internal Medicine; Visit Provider Internal Medicine
DX: R92.2 Inconclusive mammogram (principal)
CPT/HCPCS: 77062; 77066

== ENCOUNTER → 2023-11-11 10:30 | Outpatient (BNV) | payer OTHER, SELFPAY | PROVIDERS: PCP Internal Medicine; Visit Provider Radiology Diagnostic Radiology | DX: R92.323 Mammographic fibroglandular density, bilateral breasts (principal) | CPT/HCPCS: 77062; 77066 ==

== ENCOUNTER 2023-11-29 11:40 | Day surgery (SDC) | payer OTHER, SELFPAY ==
--- NOTE | 2023-11-25 13:44 | HO.ANESPROP2 ---
Documented by User: Abbey Sinclair NP 11/25/23 13:45 HPI - Anesthesia Eval Consult details Narrative: 43yo F for D&C Hysteroscopy possible myomectomy/polypectomy PMFSH Active Problems Active Problems: All Active Problems Complex ovarian cyst (Acute) Complex cyst of both ovaries (Acute) ASCUS with positive high risk HPV cervical (Acute) Abnormal uterine bleeding (AUB) (Acute) Menorrhagia (Acute) Urinary tract infection (Acute) Lower back pain (Acute) Hypercalcemia (Acute) Annual physical exam (Acute) Past Medical History Medical History ASCUS with positive high risk HPV cervical Lower back pain Hypercalcemia Hidradenitis suppurativa Annual physical exam Family History Family History Mother Rheumatoid arthritis Surgical History Surgical History S/P cholecystectomy Social History Social History Household Members: Children Housing: House Alcohol intake: current Alcohol intake frequency: holidays/special occasions only Patient Tobacco Use Status: Current everyday Tobacco user Tobacco use type: Cigarette Cigarettes Per Day: 8 Years Smoked: 10 e-Cigarette/Vaping Use: Never Used Date Education Initiated: 11/29/23 Use of substances other than those prescribed or required for medical reasons: No Are you DNR?: No Advance Directives: No Advance Directives Information Provided: Yes Current occupational status: employed Cognitive needs: No Hearing needs: No Vision needs: Yes Meds Allergies Allergy/AdvReac Type Severity Reaction Status Date / Time cephalexin Allergy Severe nausea Verified 11/29/23 12:07 vomiting sulfamethoxazole Allergy Diarrhea Verified 11/29/23 12:07 [From Bactrim] trimethoprim [From Bactrim] Allergy Diarrhea Verified 11/29/23 12:07 trazodone AdvReac Unknown palpitation Verified 11/29/23 12:07 s tramadol AdvReac Itching Verified 11/29/23 12:07 skin Home Medications ?Medication ?Instructions ?Recorded ?Confirmed ?Last Taken ?Type No Known Home Meds 11/29/23 11/29/23 Unknown History Assessment and Plan Assessment Anesthesia Assessment: Chart Reviewed Documented by User: Zaid Peraza MD 11/29/23 13:24 [facility] Past Medical History Medical History ASCUS with positive high risk HPV cervical Lower back pain Hypercalcemia Hidradenitis suppurativa Annual physical exam Family History Family History Mother Rheumatoid arthritis Family history of problems with anesthesia: No Surgical History Surgical History S/P cholecystectomy History of Problems with Anesthesia: No Social History Social History Household Members: Children Housing: House Alcohol intake: current Alcohol intake frequency: holidays/special occasions only Patient Tobacco Use Status: Current everyday Tobacco user Tobacco use type: Cigarette Cigarettes Per Day: 8 Years Smoked: 10 e-Cigarette/Vaping Use: Never Used Date Education Initiated: 11/29/23 Use of substances other than those prescribed or required for medical reasons: No Are you DNR?: No Advance Directives: No Advance Directives Information Provided: Yes Current occupational status: employed Cognitive needs: No Hearing needs: No Vision needs: Yes Meds Allergies Allergy/AdvReac Type Severity Reaction Status Date / Time cephalexin Allergy Severe nausea Verified 11/29/23 12:07 vomiting sulfamethoxazole Allergy Diarrhea Verified 11/29/23 12:07 [From Bactrim] trimethoprim [From Bactrim] Allergy Diarrhea Verified 11/29/23 12:07 trazodone AdvReac Unknown palpitation Verified 11/29/23 12:07 s tramadol AdvReac Itching Verified 11/29/23 12:07 skin Home Medications ?Medication ?Instructions ?Recorded ?Confirmed ?Last Taken ?Type No Known Home Meds 11/29/23 11/29/23 Unknown History Assessment and Plan Assessment Anesthesia Assessment: Anesthesia Plan Discussed Final Anesthetic Review Family History of Problems with Anesthesia: No History of Problems with Anesthesia: No NPO: Yes ASA Class: II Final Preanesthetic Review: No Changes in Pt Med Stat, Meds/Allgs Chart Reviewed, Consent Obtained/Reviewed and Anes Risks/Benef Reviewed Patient Risk: Low Procedure Risk: Low Anesthetic Plan Anesthetic Plan: GA Disposition: Standard PACU
[2023-11-29] VITALS (12 sets, daily range): BP systolic 120–139; BP diastolic 69–86; PULSE 63–100; RESP 14–18; TEMP 36.1–36.8; O2SAT 97–100; BMI 31.3
[2023-11-29 12:05] LABS: UPreg QC Valid YES; Urine Pregnancy NEGATIVE (NEGATIVE)
[2023-11-29] MEDS: Lactated Ringers 1,000 ML 100 ML IVCONT (12:17)
--- NOTE | 2023-11-29 13:23 | MHC.SHP ---
Pre-Procedural Eval Section A - 24 Hr Update-Section A only Date of Service: 11/29/23 The patient is an INPATIENT: No Changes since office visit: No Cold of Flu in the past 2 weeks, No New Medical Problems, No Changes in Medication and No Patient answered all questions The patient has been examined within 24 hours of the surgical procedure. The History & Physical has been completed within 30 days and I have reviewed it.: Yes Section B - Complete if H&P > 30 days Chief Complaint: Abnormal uterine and vaginal bleeding, unspecified Allergies: Allergies Allergy/AdvReac Type Severity Reaction Status Date / Time cephalexin Allergy Severe nausea Verified 11/29/23 12:07 vomiting sulfamethoxazole Allergy Diarrhea Verified 11/29/23 12:07 [From Bactrim] trimethoprim [From Bactrim] Allergy Diarrhea Verified 11/29/23 12:07 trazodone AdvReac Unknown palpitation Verified 11/29/23 12:07 s tramadol AdvReac Itching Verified 11/29/23 12:07 skin Plan Diagnosis/Plan: Unchanged I have reviewed the history and physical and performed a pertinent physical examination on my patient. No changes have occurred unless specified. Time Spent With Patient Time: Total time managing care of this patient today ____ minutes.
--- NOTE | 2023-11-29 13:52 | PM.OP ---
Brief Operative Note Date of Service: 11/29/23 Pre-op diagnosis: Abnormal uterine bleeding with endometrial polyp on EMB pathology Post-op diagnosis: same (Normal endometrial cavity) Procedure: Hysteroscopy D&C Surgeon: Raúl Mueller MD Anesthesia: GLMA Was an Civil Transportation Engineer used for this Procedure?: No Estimated blood loss (mL): 0 Pathology: other (Endometrial Scrapping.) Condition: stable Disposition: PACU
--- NOTE | 2023-11-29 13:53 | W.PM.OPN ---
Operative Note Operative Note Date of Service: 11/29/23 Narrative: Preop Diagnosis: Abnormal uterine bleeding, endometrial polyp on EMB pathology Operation: Diagnostic Hysteroscopy, Dilataion & Curettage Post Op Diagnosis: Normal endometrial and endocervical cavity, no evidence of pathology QBL: Minimal Anesthesia: GLMA Surgeon: Raúl Mueller MD Fruit Thinner Machine Operator: None Complication: None Pathology: Endometrial Scrapings Procedure: The patient was put in the dorsal lithotomy position, scrubbed, and draped in the usual manner. A sterile speculum was inserted in the patient's vagina. The anterior lip of the cervix was grasped with a single tooth tenaculum. The cervix was dilated up to 5 mm, then the scope was inserted in the patient's uterus. Inspection revealed normal endocervical & endometrial cavity with no evidence of pathology. The scope was taken out of the uterine cavity , then sharp curetting was carried on with no complications. At the end of the procedure, all instruments were taken out of the patient uterine and vaginal cavity. The single tooth tenaculum was removed and homeostasis was assured using pressure. The patient tolerated the procedure well and was transferred to the PACU in a stable condition.
[2023-11-29] MEDS: fentaNYL citrate/PF 100 MCG/2 ML VIAL 25 MCG IVPUSH ×2 (14:09→14:21)
[2023-11-29] MEDS: Ketorolac Tromethamine 30 MG/ML VIAL IVPUSH (14:33)
== END 2023-11-29 15:10 | disposition home or self-care (01) ==
PROVIDERS: Nurse Practitioner; PCP Internal Medicine; Visit Provider Obstetrics & Gynecology
PROC: 0UDB8ZZ Extraction of Endometrium, Via Natural or Artificial Opening Endoscopic (ICD-10-PCS; CPT 58558; principal; 2023-11-29 13:30)
DX: N93.9 Abnormal uterine and vaginal bleeding, unspecified (principal); M54.50 Low back pain, unspecified; E83.52 Hypercalcemia; L73.2 Hidradenitis suppurativa; Z88.1 Allergy status to other antibiotic agents; Z88.2 Allergy status to sulfonamides; F17.210 Nicotine dependence, cigarettes, uncomplicated
CPT/HCPCS: 58558; 81025; 88305; J1100; J1885; J2405; J2704; J3010

== ENCOUNTER → 2023-11-29 11:40 | Outpatient (BNV) | payer OTHER, SELFPAY | PROVIDERS: PCP Internal Medicine; Visit Provider Obstetrics & Gynecology | DX: N93.9 Abnormal uterine and vaginal bleeding, unspecified (principal) | CPT/HCPCS: 58558 ==

== ENCOUNTER 2023-12-07 | Outpatient (REF) | payer OTHER, SELFPAY ==
[2023-12-08 17:33] LABS: Bacterial Vaginosis PCR POSITIVE (Negative); Candida Group PCR NOT DETECTED (Not Detect); Candida glab krusei PCR NOT DETECTED (Not Detect); Trichomonas vaginalis PCR NOT DETECTED (Not Detect)
[2023-12-08 17:58] LABS: CT PCR NOT DETECTED (Not Detect.); NG PCR NOT DETECTED (Not Detect.)
== END 2023-12-07 00:01 | disposition home or self-care (01) ==
LOC: HO.LNP
PROVIDERS: Visit Provider Obstetrics & Gynecology
DX: N76.0 Acute vaginitis (principal); B96.89 Other specified bacterial agents as the cause of diseases classified elsewhere
CPT/HCPCS: 0352U; 87491; 87591

== ENCOUNTER 2023-12-07 15:35 | Outpatient (AMB) | payer OTHER, SELFPAY ==
--- NOTE | 2023-12-07 15:42 | A.OFFVIS_ITS ---
Vital Signs 12/07/23 15:46 Height 5 ft 2 in Weight 165 lb BMI 30.2 Intake Visit Reasons: post op Allergies cephalexin Allergy (Severe, Verified 11/29/23 12:07) nausea vomiting sulfamethoxazole [From Bactrim] Allergy (Verified 11/29/23 12:07) Diarrhea trimethoprim [From Bactrim] Allergy (Verified 11/29/23 12:07) Diarrhea trazodone Adverse Reaction (Unknown, Verified 11/29/23 12:07) palpitations tramadol Adverse Reaction (Verified 11/29/23 12:07) Itching skin HPI Comments Details: The patient is presenting post hysteroscopy D&C no complaints minimal vaginal bleeding no feverishness chills or abdominal pain. The pathology showed the following: Disordered proliferative endometrium; no atypia or hyperplasia identified The following workup was done.: H&H= 14. TSH, prolactin, hCG, GC and chlamydia were negative. Co testing was done in 02/04 was negative. Mammogram was in 11/06 was BI-RADS 3, the recommendation was to repeat in 6 months Pelvic ultrasound is scheduled soon The patient is complaining of vaginal discharge associated with foul odor, no itching PFSH Medical History ASCUS with positive high risk HPV cervical Lower back pain Hypercalcemia Hidradenitis suppurativa Annual physical exam Surgical History S/P cholecystectomy Family History Mother Rheumatoid arthritis Social History Household Members: Children Housing: House Alcohol intake: current Alcohol intake frequency: holidays/special occasions only Patient Tobacco Use Status: Current everyday Tobacco user Tobacco use type: Cigarette Cigarettes Per Day: 8 Years Smoked: 10 e-Cigarette/Vaping Use: Never Used Current occupational status: employed Cognitive needs: No Hearing needs: No Vision needs: Yes Female Reproductive History Menstrual Age of Menarche: 13 Review of Systems Const All systems reviewed & are unremarkable except as noted in HPI and below Physical Exam Vital Signs: BMI result Body Mass Index 30.2 General: Yes no CVA tenderness External Female Exam: normal external appearance and normal appearance of the urethra Speculum Exam - Vagina: normal appearance of the vagina, normal palpation, no lesions and no masses Speculum Exam - Cervix: normal appearance of the cervix, normal palpation, no lesions, no masses and nontender Bimanual exam- vagina & uterus: normal bimanual exam, normal palpation, uterine size normal, normal palpation, uterine shape normal, No Cervical tenderness present and non-tender Bimanual Exam- Adnexa, other: normal adnexae Back/Spine/Pelvis Back: no CVA tenderness Assessment & Plan Assessment & Plan (1) Abnormal uterine bleeding (AUB): Code(s): N93.9 - Abnormal uterine and vaginal bleeding, unspecified Category: Medical Plan: Discussed with the patient the results of the work up done and options of treatment including Lysteda, BCP's, Mirena IUD, endometrial ablation and hysterectomy. All pros, cons, risks and benefits if each option was discussed with the patient and the patient decided to go ahead with Lysteda , so a more detailed discussion re: Lysteda including mechanism of action, benefits, risks including but not limited to thrombosis and strokes, Instructions were given on how to use, 2 tablets p.o. 3 times a day day 1 up to 3-5 days of menses and to schedule a 3 months follow-up appointment. The patient verbalized understanding and agreed with the plan. (2) Bacterial vaginosis: Code(s): N76.0 - Acute vaginitis; B96.89 - Other specified bacterial agents as the cause of diseases classified elsewhere Category: Medical Plan: GC and chlamydia cultures with BV panel taken. Per CDC recommendation, will screen for STI, HepBs Ag, HIV, RPR, Hep C Ab ordered. Will treat with Flagyl 500 mg p.o. b.i.d. x 7 days, Instructions given to the patient to refrain from se xual activity or to use condoms consistently and correctly during the BV treatment regimen, not to douch, it might increase the risk for relapse, and to call if symptoms persist or recur. Orders: Orders HIV Ab/Ag Today B96.89 - Other specified bacterial agents as the cause of diseases classified elsewhere, N76.0 - Acute vaginitis Hepatitis B Surface Antigen Today B96.89 - Other specified bacterial agents as the cause of diseases classified elsewhere, N76.0 - Acute vaginitis Hepatitis C Antibody Today B96.89 - Other specified bacterial agents as the cause of diseases classified elsewhere, N76.0 - Acute vaginitis Syphilis Screen Today B96.89 - Other specified bacterial agents as the cause of diseases classified elsewhere, N76.0 - Acute vaginitis Medications: New metronidazole 500 mg PO BID 7 days 14 tabs 0RF tranexamic acid 1,300 mg (2 x 650 mg) PO TID 5 days 30 tabs 0RF Coding Level of Care Code Est Pt Level 3 (32189) Diagnoses Abnormal uterine bleeding (AUB) N93.9 Bacterial vaginosis N76.0; B96.89
[2023-12-07 15:46] VITALS: BMI 30.2
== END 2023-12-07 16:20 | disposition home or self-care (01) ==
PROVIDERS: PCP Internal Medicine; Visit Provider Obstetrics & Gynecology
DX: N93.9 Abnormal uterine and vaginal bleeding, unspecified (principal); N76.0 Acute vaginitis; B96.89 Other specified bacterial agents as the cause of diseases classified elsewhere
CPT/HCPCS: 99213

== ENCOUNTER 2023-12-07 15:35 | Outpatient (REF) | payer OTHER, SELFPAY | END 2023-12-07 15:36 | disposition home or self-care (01) | LOC: HO.LNP 15:35 | PROVIDERS: PCP Internal Medicine; Visit Provider Obstetrics & Gynecology | DX: N93.9 Abnormal uterine and vaginal bleeding, unspecified (principal); N76.0 Acute vaginitis; B96.89 Other specified bacterial agents as the cause of diseases classified elsewhere | CPT/HCPCS: 99212 ==

== ENCOUNTER 2023-12-26 15:42 | Outpatient (REF) | payer OTHER, SELFPAY ==
--- NOTE | ~2023-12-26 | US_ITS ---
EXAM: Pelvic Ultrasound CLINICAL INDICATION: Abnormal vaginal bleeding. COMPARISON: Pelvic ultrasound July 02, 2022 TECHNIQUE: The pelvis was evaluated using transabdominal and transvaginal imaging. FINDINGS: The uterus measures 9.2 x 5.0 x 5.3 cm in longitudinal by AP by transverse dimension. The endometrial stripe is not thickened and measures 0.7 cm. The right ovary measures approximately 4.4 x 2.0 x 2.6 cm and contains two simple appearing cysts, largest measuring approximately 2 cm. The left ovary is surgically absent. There is no free fluid in the pelvis. US/US pelvic and transvaginal IMPRESSION: Endometrial stripe measures 7 mm in thickness. Correlation with menstrual cycle recommended. Electronically signed by: Marc Stark MD 01/13/2024 06:48 AM EDT
== END 2023-12-26 15:43 | disposition home or self-care (01) ==
LOC: HO.US 15:42
PROVIDERS: PCP Internal Medicine; Visit Provider Obstetrics & Gynecology
DX: N93.9 Abnormal uterine and vaginal bleeding, unspecified (principal)
CPT/HCPCS: 76830; 76856

== ENCOUNTER 2024-08-16 07:47 | Outpatient (AMB) | payer OTHER, SELFPAY ==
--- NOTE | 2024-08-16 07:55 | A.OFFVIS_ITS ---
Vital Signs 08/16/24 07:58 Height 5 ft 2 in Weight 180 lb BMI 32.9 BP 118/72 Intake Visit Reasons: AUB Paper Production Engineer Required: No Information Interpreted: non-clinical & clinical Grinding And Spraying Supervisor: Grinding And Spraying Supervisor Present (Aziza ARITA) Accompanied by: Self / Same As Patient Allergies cephalexin Allergy (Severe, Verified 08/16/24 08:04) nausea vomiting sulfamethoxazole [From Bactrim] Allergy (Verified 08/16/24 08:04) Diarrhea trimethoprim [From Bactrim] Allergy (Verified 08/16/24 08:04) Diarrhea trazodone Adverse Reaction (Unknown, Verified 08/16/24 08:04) palpitations tramadol Adverse Reaction (Verified 08/16/24 08:04) Itching skin HPI Comments Details: Presenting complaining of persistence of her irregular heavy menstrual cycles. The patient tried tranexamic acid but cap line having heavy menstrual cycles. Last mammogram was in 11/06 BI-RADS 3, the recommendation was to repeat in 6 months, the patient has has next mammogram scheduled in few days Last co testing was in 02/04 was negative [facility] Medical History ASCUS with positive high risk HPV cervical Lower back pain Hypercalcemia Hidradenitis suppurativa Annual physical exam Surgical History S/P cholecystectomy Family History Mother Rheumatoid arthritis Social History Household Members: Children Housing: House Alcohol intake: current Alcohol intake frequency: holidays/special occasions only Patient Tobacco Use Status: Current everyday Tobacco user Tobacco use type: Cigarette Cigarettes Per Day: 8 Years Smoked: 10 e-Cigarette/Vaping Use: Never Used Current occupational status: employed Cognitive needs: No Hearing needs: No Vision needs: Yes Female Reproductive History Menstrual Age of Menarche: 13 Review of Systems Const All systems reviewed & are unremarkable except as noted in HPI and below Physical Exam Vital Signs: Last Vital Signs BP 118/72 08/16/24 07:58 BMI result Body Mass Index 32.9 General: Yes no CVA tenderness External Female Exam: normal external appearance and normal appearance of the urethra Speculum Exam - Vagina: normal appearance of the vagina, normal palpation, no lesions and no masses Speculum Exam - Cervix: normal appearance of the cervix, normal palpation, no lesions, no masses and nontender Bimanual exam- vagina & uterus: normal bimanual exam, normal palpation, uterine size normal, normal palpation, uterine shape normal, No Cervical tenderness present and non-tender Bimanual Exam- Adnexa, other: normal adnexae Back/Spine/Pelvis Back: no CVA tenderness Results AMB Test Urine AMB Test Urine Negative Last Edit by Aziza Green CMA on 08:11 Assessment & Plan Assessment & Plan (1) Abnormal uterine bleeding (AUB): Code(s): N93.9 - Abnormal uterine and vaginal bleeding, unspecified Category: Medical Plan: GC and chlamydia taken CBC, TSH, HCG, and pelvic ultrasound ordered. Discussed with the patient the different causes of abnormal bleeding including thyroid disorders, uterine and ovarian pathology, endometrial hyperplasia, carcinoma and other potential causes. Discussed with the patient the work up including CBC (to r/o anemia), TSH, pelvic Ultrasound, endometrial biopsy to r/o endometrial pathology. All questions answered and the patient verbalized understanding. Instructed the patient to schedule an appointment for co testing and an endometrial biopsy in 2 weeks. Orders: Orders HCG Quantitative Today N93.9 - Abnormal uterine and vaginal bleeding, unspecified Complete Blood Count no Diff Today N93.9 - Abnormal uterine and vaginal bleeding, unspecified US pelvic and transvaginal Today N93.9 - Abnormal uterine and vaginal bleeding, unspecified AMB HCG Urine Test Today Z32.02 - Encounter for test, result negative TSH reflex Free T4 Today N93.9 - Abnormal uterine and vaginal bleeding, unspecified Coding Level of Care Code Est Pt Level 3 (45729) Diagnoses Abnormal uterine bleeding (AUB) N93.9
[2024-08-16 07:58] VITALS: BP 118/72; BMI 32.9
== END 2024-08-16 08:33 | disposition home or self-care (01) ==
LOC: HO.HWS 07:47
PROVIDERS: PCP Internal Medicine; Visit Provider Obstetrics & Gynecology
DX: N93.9 Abnormal uterine and vaginal bleeding, unspecified (principal); Z32.02 Encounter for pregnancy test, result negative
CPT/HCPCS: 99213

== ENCOUNTER 2024-08-16 07:47 | Outpatient (REF) | payer OTHER, SELFPAY ==
[2024-08-16 09:29] LABS: Hematocrit 44.2 % (37.0-47.0); Hemoglobin 14.7 g/dl (12.0-16.0); Mean Corpuscular HGB Conc 33.3 g/dl (31.0-35.0); Mean Corpuscular Hemoglobin 29.1 pg (27.0-33.0); Mean Corpuscular Volume 87.5 fL (80.0-98.0); Mean Platelet Volume 10.4 fL (9.4-12.3); Platelet Count 400 X10*3/uL (160-400); Red Blood Count 5.05 X10*6/uL (4.20-5.50); Red Cell Distribution Width 13.2 % (11.0-16.0); White Blood Count 10.4 X10*3/uL (4.8-10.8)
[2024-08-16 10:37] LABS: HCG Quantitative < 2 mIU/mL
[2024-08-17 02:38] LABS: CT PCR NOT DETECTED (Not Detect.); NG PCR NOT DETECTED (Not Detect.)
== END 2024-08-16 07:48 | disposition home or self-care (01) ==
LOC: HO.LAB 07:47
PROVIDERS: PCP Internal Medicine; Visit Provider Obstetrics & Gynecology
DX: N93.9 Abnormal uterine and vaginal bleeding, unspecified (principal)
CPT/HCPCS: 36415; 81025; 84443; 84702; 85027; 87491; 87591; 99212; 99459

== ENCOUNTER 2024-08-16 09:16 | Outpatient (REF) | payer OTHER, SELFPAY | END 2024-08-16 09:17 | disposition home or self-care (01) | LOC: HO.LNP 09:16 | PROVIDERS: Visit Provider Obstetrics & Gynecology | DX: Z13.89 Encounter for screening for other disorder (principal) ==

== ENCOUNTER 2024-09-21 10:39 | Outpatient (REF) | payer OTHER, SELFPAY ==
--- NOTE | ~2024-09-21 | US_ITS ---
CLINICAL HISTORY: N93.9 - Abnormal uterine and vaginal bleeding, unspecified US pelvis transabdominal and transvaginal with color Doppler Comparison: US/SR - US PELVIC AND TRANSVAGINAL - 12/26/23 15:50 EDT US/TN/SR - US PELVIC AND TRANSVAGINAL - 07/02/22 14:32 EST US/TN/SR - US PELVIC AND TRANSVAGINAL - 04/14/22 11:23 EST Findings: Transabdominal scanning performed for overall anatomy. Transvaginal scanning performed for additional detail. LMP: 3 weeks ago Retroflexed uterus, normal size and echotexture, measuring 7.6 x 4.4 x 4.2 cm. Incidental nabothian cysts. Well defined endometrium, measuring 7.0 mm in thickness. The right ovary measures, 4.2 x 5.0 x 3.8 cm. Probable physiologic cysts measuring largest measuring 3.2 x 2.7 x 2.7 cm. Normal color Doppler with normal ovarian arterial and venous spectral tracing. Left oophorectomy. No adnexal masses or fluid collections. No free fluid. Impression: 1. Retroflexed uterus with normal thickness endometrium. 2. Probable functional cysts right ovary follow-up ultrasound in 6 or 12 weeks time recommended. 3. Left oophorectomy. This document has been electronically signed by: Olivier Cottrell MD on 09/22/2024 12:28:34
== END 2024-09-21 10:40 | disposition home or self-care (01) ==
LOC: HO.US 10:39
PROVIDERS: PCP Internal Medicine; Visit Provider Obstetrics & Gynecology
DX: N93.9 Abnormal uterine and vaginal bleeding, unspecified (principal)
CPT/HCPCS: 76830; 76856

== ENCOUNTER → 2024-09-21 10:41 | Outpatient (BNV) | payer OTHER, SELFPAY | PROVIDERS: PCP Internal Medicine; Visit Provider Radiology Diagnostic Radiology | DX: N83.201 Unspecified ovarian cyst, right side (principal); R93.9 Diagnostic imaging inconclusive due to excess body fat of patient | CPT/HCPCS: 76830; 76856 ==

== ENCOUNTER 2024-10-25 10:41 | Outpatient (AMB) | payer OTHER, SELFPAY ==
[2024-10-25 10:45] VITALS: BP 118/72; BMI 32.9
--- NOTE | 2024-10-25 10:45 | MHC.OFFVIS ---
Vital Signs 10/25/24 10:45 Height 5 ft 2 in Weight 180 lb BMI 32.9 BP 118/72 Intake Visit Reasons: EMB/ cotest Allergies cephalexin Allergy (Severe, Verified 08/16/24 08:04) nausea vomiting sulfamethoxazole [From Bactrim] Allergy (Verified 08/16/24 08:04) Diarrhea trimethoprim [From Bactrim] Allergy (Verified 08/16/24 08:04) Diarrhea trazodone Adverse Reaction (Unknown, Verified 08/16/24 08:04) palpitations tramadol Adverse Reaction (Verified 08/16/24 08:04) Itching skin HPI Comments Details: Presenting for EMB Last co testing in 11/06 was negative preceded by 11/04 co testing negative in ascus/HPV negative in 2019 [facility], [facility] Medical History ASCUS with positive high risk HPV cervical Lower back pain Hypercalcemia Hidradenitis suppurativa Annual physical exam Surgical History S/P cholecystectomy Family History Mother Rheumatoid arthritis Social History Household Members: Children Housing: House Alcohol intake: current Alcohol intake frequency: holidays/special occasions only Patient Tobacco Use Status: Current everyday Tobacco user Tobacco use type: Cigarette Cigarettes Per Day: 8 Years Smoked: 10 e-Cigarette/Vaping Use: Never Used Current occupational status: employed Cognitive needs: No Hearing needs: No Vision needs: Yes Female Reproductive History Menstrual Age of Menarche: 13 Review of Systems Const All systems reviewed & are unremarkable except as noted in HPI and below Reports as per HPI and Reports no additional complaints GI Reports no additional complaints Reports no additional complaints Physical Exam Vital Signs: Last Vital Signs BP 118/72 10/25/24 10:45 BMI result Body Mass Index 32.9 General: Yes no CVA tenderness External Female Exam: normal external appearance and normal appearance of the urethra Speculum Exam - Vagina: normal appearance of the vagina, normal palpation, no lesions and no masses Speculum Exam - Cervix: normal appearance of the cervix, normal palpation, no lesions, no masses and nontender Bimanual exam- vagina & uterus: normal bimanual exam, normal palpation, uterine size normal, normal palpation, uterine shape normal, No Cervical tenderness present and non-tender Bimanual Exam- Adnexa, other: normal adnexae Back/Spine/Pelvis Back: no CVA tenderness Office Procedures Endometrial Biopsy Details: The patient was counseled regarding the indication and benefits of endometrial sampling to rule out endometrial pathology including not limited to endometrial hyperplasia or endometrial cancer and others; The alternatives (Either do nothing vs. hysteroscopy D&C) & the risks were discussed with the patient including but not limited: pain, uterine perforation, bleeding, infection, possible injury to bladder, bowel, ureter, possible need for blood transfusion with all its possible risks. The patient verbalized understanding all questions answered and signed consent. Urine test done in the office was negative The patient was placed into the dorsal lithotomy position; a speculum was inserted in the vagina. Using aseptic technique for the procedure, the cervix was cleansed with Betadine. The anterior lip of the cervix was grasped with a single tooth tenaculum. The uterus was sounded to 7 cm with a 4 mm Pipelle was used. Tissues samples were obtained and placed in formalin, in a patient labeled container and sent to the pathology department. At the end of the procedure, there was minimal bleeding noted The patient tolerated the procedure well and was discharged in good condition with the following instructions: Nothing in the vagina until the bleeding stops. No sex until the bleeding stops, to call if any of the following occurs: fever (>100.4), flu-like symptoms, abdominal pain, heavy bleeding, four smelling vaginal discharge. The patient was instructed to schedule a Follow up appointment in 2 weeks to discuss pathology results of the biopsy and treatment options. This note was generated with a voice recognition program. Some errors may have been overlooked during the review of this note. Sometimes these errors may affect the content or meaning of a given sentence. 35538-[id number] Biopsy Assessment & Plan Assessment & Plan (1) Abnormal uterine bleeding (AUB): Code(s): N93.9 - Abnormal uterine and vaginal bleeding, unspecified Category: Medical Plan: EMB done, see procedure note Orders: Orders AMB Endometrial Biopsy Today N93.9 - Abnormal uterine and vaginal bleeding, unspecified Coding Level of Care Code Procedure Only Diagnoses Abnormal uterine bleeding (AUB) N93.9 CPT Codes Endometrial Biopsy - CPT: 64779-[id number] Biopsy ([id number])
== END 2024-10-25 11:00 | disposition home or self-care (01) ==
LOC: HO.HWS 10:41
PROVIDERS: PCP Internal Medicine; Visit Provider Obstetrics & Gynecology
DX: N93.9 Abnormal uterine and vaginal bleeding, unspecified (principal)
CPT/HCPCS: 58100

== ENCOUNTER 2024-10-25 10:41 | Outpatient (REF) | payer OTHER, SELFPAY | END 2024-10-25 10:42 | disposition home or self-care (01) | LOC: HO.LNP 10:41 | PROVIDERS: PCP Internal Medicine; Visit Provider Obstetrics & Gynecology | DX: N93.9 Abnormal uterine and vaginal bleeding, unspecified (principal) | CPT/HCPCS: 58100; 88305 ==

== ENCOUNTER 2024-10-30 13:58 | Outpatient (REF) | payer OTHER, SELFPAY ==
--- NOTE | ~2024-10-30 | US_ITS ---
EXAMINATION: US PELVIS CLINICAL INFORMATION: Pelvic pain, endometrial biopsy 5 days ago, prior , prior left oophorectomy COMPARISON: September 21, 2024 TECHNIQUE: Ultrasound of the pelvis is performed using both transabdominal and transvaginal transducers along with Doppler. Transvaginal imaging is performed due to inadequate visualization transabdominally. FINDINGS: Uterus: The uterus measures 8.5 x 4.5 x 4.7 cm. The endometrial stripe thickness is 8 mm. There is no fluid in the endometrial canal. The uterus is smooth in contour and has normal myometrial echogenicity. No visible fibroid. Adnexa: The right ovary is visualized. There is normal color flow to the adnexa. There is no ovarian torsion. There is no pelvic ascites or fluid collection. Right ovary measures 3.6 x 2.4 x 2.8 cm. It appears unremarkable Left ovary is surgically absent. US/US pelvic and transvaginal IMPRESSION: Unremarkable uterus and right ovary status post left oophorectomy. Electronically signed by: Jimbo Abdi MD 10/30/2024 03:08 PM EDT
[2024-10-30 14:16] LABS: Hematocrit 44.7 % (37.0-47.0); Hemoglobin 14.7 g/dl (12.0-16.0); Mean Corpuscular HGB Conc 32.9 g/dl (31.0-35.0); Mean Corpuscular Hemoglobin 28.5 pg (27.0-33.0); Mean Corpuscular Volume 86.8 fL (80.0-98.0); Mean Platelet Volume 10.1 fL (9.4-12.3); Platelet Count 337 X10*3/uL (160-400); Red Blood Count 5.15 X10*6/uL (4.20-5.50); White Blood Count 10.7 X10*3/uL (4.8-10.8)
== END 2024-10-30 13:59 | disposition home or self-care (01) ==
LOC: HO.US 13:58
PROVIDERS: PCP Internal Medicine; Visit Provider Obstetrics & Gynecology
DX: R10.2 Pelvic and perineal pain (principal); N71.9 Inflammatory disease of uterus, unspecified
CPT/HCPCS: 36415; 76830; 76856; 81002; 85027; 99212

== ENCOUNTER → 2024-10-30 14:13 | Outpatient (BNV) | payer OTHER, SELFPAY | PROVIDERS: PCP Internal Medicine; Visit Provider Radiology Diagnostic Radiology | DX: R10.2 Pelvic and perineal pain (principal) | CPT/HCPCS: 76830; 76856 ==

== ENCOUNTER 2024-10-30 14:57 | Outpatient (AMB) | payer OTHER, SELFPAY ==
--- NOTE | 2024-10-30 15:01 | MHC.OFFVIS ---
Intake Visit Reasons: US follow up Allergies cephalexin Allergy (Severe, Verified 08/16/24 08:04) nausea vomiting sulfamethoxazole [From Bactrim] Allergy (Verified 08/16/24 08:04) Diarrhea trimethoprim [From Bactrim] Allergy (Verified 08/16/24 08:04) Diarrhea trazodone Adverse Reaction (Unknown, Verified 08/16/24 08:04) palpitations tramadol Adverse Reaction (Verified 08/16/24 08:04) Itching skin HPI Comments Details: Presenting complaining of pelvic pain 5 days post EMB with no associated vaginal bleeding, no fever or chills, no nausea or vomiting, no additional GI or symptoms. CBC done today : WBC 10.7, H and H 14.7/44.7 Pelvic ultrasound done today report still pending [facility] Medical History ASCUS with positive high risk HPV cervical Lower back pain Hypercalcemia Hidradenitis suppurativa Annual physical exam Surgical History S/P cholecystectomy Family History Mother Rheumatoid arthritis Social History Household Members: Children Housing: House Alcohol intake: current Alcohol intake frequency: holidays/special occasions only Patient Tobacco Use Status: Current everyday Tobacco user Tobacco use type: Cigarette Cigarettes Per Day: 8 Years Smoked: 10 e-Cigarette/Vaping Use: Never Used Current occupational status: employed Cognitive needs: No Hearing needs: No Vision needs: Yes Female Reproductive History Menstrual Age of Menarche: 13 Review of Systems Const All systems reviewed & are unremarkable except as noted in HPI and below Physical Exam General: Yes no CVA tenderness External Female Exam: normal external appearance and normal appearance of the urethra Speculum Exam - Vagina: normal appearance of the vagina, normal palpation, no lesions and no masses Speculum Exam - Cervix: normal palpation, no lesions, no masses and Cervical tenderness present Bimanual exam- vagina & uterus: normal bimanual exam, normal palpation, uterine size normal, normal palpation, uterine shape normal, Cervical tenderness present, cervical motion tenderness and Uterine tenderness Bimanual Exam- Adnexa, other: normal adnexae Back/Spine/Pelvis Back: no CVA tenderness Assessment & Plan Assessment & Plan (1) Endometritis: Comment: Post EMB Code(s): N71.9 - Inflammatory disease of uterus, unspecified Category: Medical Plan: Urine dip and test done in the office were both negative. GC and chlamydia taken. The patient is allergic to ceftriaxone will treat with alternative oral regimen with Levaquin 500 mg p.o. q.d. with Flagyl 500 mg p.o. b.i.d. for 14 days. Instructions given the patient to call or go to emergency room in case of fever equal or above 100.4, persistent or worsening of her abdominal/pelvic pain, nausea or vomiting and to schedule a 1 week follow-up appointment Orders: Orders AMB Urinalysis Dipstick Today R10.2 - Pelvic and perineal pain Urine Culture Today R10.2 - Pelvic and perineal pain Medications: New metronidazole 500 mg PO BID 14 days 28 tabs 0RF levofloxacin 500 mg PO DAILY 14 days 14 tabs 0RF Coding Level of Care Code Est Pt Level 3 (27266) Diagnoses Endometritis N71.9
== END 2024-10-30 15:19 | disposition home or self-care (01) ==
LOC: HO.HWS 14:57
PROVIDERS: PCP Internal Medicine; Visit Provider Obstetrics & Gynecology
DX: N71.9 Inflammatory disease of uterus, unspecified (principal); R10.2 Pelvic and perineal pain
CPT/HCPCS: 99213

== ENCOUNTER 2024-10-30 15:06 | Outpatient (REF) | payer OTHER, SELFPAY ==
[2024-10-30 18:44] LABS: CT PCR NOT DETECTED (Not Detect.); NG PCR NOT DETECTED (Not Detect.)
== END 2024-10-30 15:07 | disposition home or self-care (01) ==
LOC: HO.LNP 15:06
PROVIDERS: Visit Provider Obstetrics & Gynecology
DX: R10.2 Pelvic and perineal pain (principal)
CPT/HCPCS: 87086; 87491; 87591

== ENCOUNTER 2024-11-23 08:26 | Outpatient (AMB) | payer OTHER, SELFPAY ==
--- NOTE | 2024-11-23 08:26 | MHC.OFFVIS ---
Intake Visit Reasons: TV EMB Results Allergies cephalexin Allergy (Severe, Verified 08/16/24 08:04) nausea vomiting sulfamethoxazole (From Bactrim) Allergy (Verified 08/16/24 08:04) Diarrhea trimethoprim (From Bactrim) Allergy (Verified 08/16/24 08:04) Diarrhea trazodone Adverse Reaction (Unknown, Verified 08/16/24 08:04) palpitations tramadol Adverse Reaction (Verified 08/16/24 08:04) Itching skin HPI Comments Details: The patient schedule a telehealth visit for follow-up to discuss the results of her abnormal uterine bleeding workup and options of treatment. The following workup was done.: H&H= 14.7/44.7 TSH, hCG, GC and chlamydia were negative. Endometrial biopsy pathology showed the following: Proliferative endometrium; negative for hyperplasia/malignancy Co testing was done in 11/06 was negative. Mammogram was in 11/06 BI-RADS 3, the recommendation was to repeat in 6 months, no mammogram scheduled or done since then. Pelvic ultrasound showed the following: MPRESSION: Unremarkable uterus and right ovary status post left oophorectomy. [facility] Medical History ASCUS with positive high risk HPV cervical Lower back pain Hypercalcemia Hidradenitis suppurativa Annual physical exam Surgical History S/P cholecystectomy Family History Mother Rheumatoid arthritis Social History Household Members: Children Housing: House Alcohol intake: current Alcohol intake frequency: holidays/special occasions only Patient Tobacco Use Status: Current everyday Tobacco user Tobacco use type: Cigarette Cigarettes Per Day: 8 Years Smoked: 10 e-Cigarette/Vaping Use: Never Used Current occupational status: employed Cognitive needs: No Hearing needs: No Vision needs: Yes Female Reproductive History Menstrual Age of Menarche: 13 Review of Systems Const All systems reviewed & are unremarkable except as noted in HPI and below Reports as per HPI and Reports no additional complaints GI Reports no additional complaints Reports no additional complaints Telehealth Telehealth Telehealth Platform: Telephone Location of provider rendering services: practice address Location of patient: other Patient Identification confirmed using: Name, : Yes Telehealth method: video Patient verbally consented to treatment: Yes Patient verbally consented to billing insurance company: Yes Patient informed of any privacy concerns related to visit: Yes Minutes spent on Phone/Video with Pt.: 4 Assessment & Plan Assessment & Plan (1) Abnormal uterine bleeding (AUB): Code(s): N93.9 - Abnormal uterine and vaginal bleeding, unspecified Category: Medical Plan: Screening mammogram ordered Discussed with the patient the results of the work up done and options of treatment including Lysteda, control pills, Mirena IUD, endometrial ablation and hysterectomy. All pros, cons, risks and benefits if each option was discussed with the patient and the patient decided to go ahead with Mirena IUD so a more detailed discussion about it was conducted including mechanism of action, risks (uterine perforation, infection, injury to bladder, bowel, displacement, and others) benefits (hypo menorrhea, amenorrhea, ...). GC/CT were taken and negative and the patient was instructed to schedule Mirena IUD insertion on day 1-5 of next cycle . All questions answered, the patient verbalized understanding I spent a total of 20 minutes reviewing the chart, talking to the patient via video and documenting in the medical record. Orders: Orders MM tomosynthesis screening BI Today Z12.31 - Encounter for screening mammogram for malignant neoplasm of breast Coding Level of Care Code Tele Est Pt Level 3 (17164) Diagnoses Abnormal uterine bleeding (AUB) N93.9
== END 2024-11-23 09:32 | disposition home or self-care (01) ==
PROVIDERS: PCP Internal Medicine; Visit Provider Obstetrics & Gynecology
DX: N93.9 Abnormal uterine and vaginal bleeding, unspecified (principal)
CPT/HCPCS: 99213

== ENCOUNTER 2025-01-23 07:37 | Outpatient (REF) | payer MEDICAID, SELFPAY ==
[2025-01-26 03:38] LABS: TS Negative Control Passed; TS Panel A 0; TS Panel B 1; TS Positive Control Passed; TSpotTB Negative (Negative)
== END 2025-01-23 07:38 | disposition home or self-care (01) ==
LOC: HO.HMGCLDS 07:37
PROVIDERS: PCP Internal Medicine; Visit Provider Internal Medicine
DX: Z11.1 Encounter for screening for respiratory tuberculosis (principal)
CPT/HCPCS: 36415; 86481